=== PATIENT | male | born 1985 | race Caucasian/White ===

== ENCOUNTER 2018-02-16 18:54 | Emergency (ER) | payer OTHER ==
[2018-02-16] MEDS ORDERED: IPRATROPIUM/ALBUTEROL 3 ML DEYVIAL ONE (19:12)
[2018-02-16] MEDS ORDERED: IPRATROPIUM/ALBUTEROL 3 ML DEYVIAL IH ONE ×3 (19:14→20:18)
--- NOTE | 2018-02-16 19:15 | EDPHY ---
H & P Stated Complaint: sob low o2 sat 1 mos hx pnuemonia strep Time Seen by Provider: 02/16/18 19:12 - Personal History Current Tetanus/Diphtheria Vaccine: Yes Current Tetanus Diphtheria and Acellular Pertussis (TDAP): Yes - Medical/Surgical History Hx Asthma: No Hx Chronic Respiratory Disease: No Hx Diabetes: No Hx Cardiac Disease: No Hx Renal Disease: No Hx Cirrhosis: No Hx Alcoholism: No Hx HIV/AIDS: No Hx Splenectomy or Spleen Trauma: No - Social History Smoking Status: Current every day smoker Constitutional: Initial Vital Signs Temperature (C) 37.2 C 02/16/18 19:07 Heart Rate 109 H 02/16/18 19:07 Respiratory Rate 20 02/16/18 19:07 Blood Pressure 167/133 H 02/16/18 19:07 O2 Sat (%) 86 L 02/16/18 19:07 O2 Delivery Mode Room Air O2 (L/minute) 2 Allergies/Adverse Reactions: No Known Allergies Allergy (Unverified 02/16/18 19:06) Home Medications: Medication Instructions Recorded Ghislaine Allergy 02/16/18 Azithromycin [Zithromax] 250 mg PO DAILY #6 tab 02/16/18 predniSONE 40 mg PO DAILY #10 tab 02/16/18 Medical Decision Making - Diagnostics Imaging Results: Imaging Impressions Chest X-Ray 02/16/18 19:19 Impression: 1. Airways disease. 2. There are vague noncalcified nodular densities in each upper lung. These could potentially be secondary to mucous plugging with or without underlying bronchiectasis. Is there a history of cystic fibrosis? Results discussed with Dr. Garsia. Imaging: Discussed imaging studies w/ call center analyst Radiologist, I viewed and interpreted images myself ED Course/Re-evaluation: CHIEF COMPLAINT: Shortness of breath HISTORY OF PRESENT ILLNESS: The patient is a 33 y/o male with a history of asthma and hypertension complaining of worsening shortness of breath, onset two weeks ago. Around two months ago he was diagnosed with pneumonia and successfully treated with antibiotics. Around two weeks ago he developed a head cold associated with post- nasal drip. The head cold progressed and he developed a cough and shortness of breath. Today he noticed that the shortness of breath was worse and decided to present to the emergency department. He denies fevers or chills. Denies chest pain, abdominal pain, urinary or bowel complaints, numbness, paresthesias, headache. REVIEW OF SYSTEMS: A 10 point review of systems was performed and is negative with the exception of the elements mentioned in the history of present illness. PHYSICAL EXAM: HR, BP, O2 Sat, RR. Temp noted General Appearance: Alert, well hydrated, appropriate, and non-toxic appearing. Head: Atraumatic without scalp tenderness or obvious injury Eyes: Pupils equal, round, reactive to light and accommodation, EOMI, no trauma , no injection. Ears: Clear bilaterally, no perforation, normal landmarks Nose: Atraumatic, no rhinorrhea, clear. Throat: There is no erythema or exudates, no lesions, normal tonsils, mucus membranes moist. Neck: Supple, 2+ carotid upstroke, nontender, no lymphadenopathy. Respiratory: Bilateral increased end-expiratory phase, end expiratory wheezes, coarse rhonchi throughout. No retractions, no distress, and no accessory muscle use. Cardiovascular: Regular rate and rhythm, no murmurs, rubs, or gallops. Bilateral carotid, radial, dorsalis pedis, and posterior tibial pulses intact. Good capillary refill all extremities. Gastrointestinal: Abdomen is soft, nontender, non-distended, no masses, no rebound, no guarding, no peritoneal signs. Musculoskeletal: Normal active ROM of all extremities, atraumatic. Neurological: Alert, appropriate, and interactive. The patient has normal DTRs and non-focal cranial nerves, motor, sensory, and cerebellar exam. Skin: No rashes, good turgor, no nodules on palpation. 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 MEDICAL DECISION MAKING: The patient is a 33 y/o male with a history of asthma and hypertension presenting with worsening shortness of breath and a cough, onset two weeks ago. On exam he has bilateral increased end-expiratory phase, end expiratory wheezes , and coarse rhonchi throughout. His O2Sats are currently 89%. Chest x-ray ordered; two DuoNebs, 60mg PO Prednisone, and 500mg PO Azithromycin administered. 2014: Reassessed patient, he is feeling better after medications; additional DuoNeb administered. Chest x-ray still pending at this time. 2033: I spoke with Dr. Vivar, radiologist, regarding this patient's chest x-ray. 2034: Reassessed patient and discussed chest x-ray findings. I have offered him an admission, which he has declined. He states that he will monitor his O2Sats as he is a LEAD IN[employer]. He also has an appointment with his PCP to address his hypertension and asthma. I have prescribed him Zithromax, Prednisone, and a Proventil inhaler. Return precautions provided; patient is comfortable with this plan. - Data Points Medications Given: Discontinued Medications Albuterol Sulfate (Proventil Inh Prepack) 1 mdi TAKEHOME EDNOW ONE Stop: 02/16/18 20:41 Last Admin: 02/16/18 20:53 Dose: 1 mdi Albuterol/Ipratropium (Duoneb) 3 ml IH EDNOW ONE Stop: 02/16/18 19:15 Last Admin: 02/16/18 19:16 Dose: 3 ml Albuterol/Ipratropium (Duoneb) 3 ml IH EDNOW ONE Stop: 02/16/18 19:19 Last Admin: 02/16/18 19:19 Dose: 3 ml Albuterol/Ipratropium (Duoneb) 3 ml IH EDNOW ONE Stop: 02/16/18 20:19 Last Admin: 02/16/18 20:20 Dose: 3 ml Azithromycin (Zithromax) 500 mg PO EDNOW ONE PRN Reason: Protocol Stop: 02/16/18 19:19 Last Admin: 02/16/18 19:27 Dose: 500 mg Prednisone (Prednisone) 60 mg PO EDNOW ONE Stop: 02/16/18 19:19 Last Admin: 02/16/18 19:27 Dose: 60 mg Departure - Departure Disposition: Home, Routine, Self-Care Clinical Impression: Hypoxemia Acute bronchitis Qualifiers: Bronchitis organism: other organism Qualified Code(s): J20.8 - Acute bronchitis due to other specified organisms Reactive airway disease Qualifiers: Asthma severity: unspecified severity Asthma persistence: unspecified Asthma complication type: uncomplicated Qualified Code(s): J45.909 - Unspecified asthma , uncomplicated Dyspnea Qualifiers: Dyspnea type: shortness of breath Qualified Code(s): R06.02 - Shortness of breath Condition: Good Instructions: Acute Bronchitis (ED), Reactive Airways Disease (ED), Dyspnea (ED ), Hypoxemia (DC) Additional Instructions: 1. Take the Zithromax and Prednisone as prescribed. 2. Use the Proventil inhaler as prescribed. 3. Follow-up with your primary doctor within 72 hours. 4. Return to the Emergency Department for fever, chest pain, shortness of breath , increasing pain or other worsening of condition. Referrals: Cecilio Jean Baptiste MD [[facility] Primary Care Provider] - As per Instructions Prescriptions: Azithromycin [Zithromax] 250 mg PO DAILY #6 tab predniSONE 40 mg PO DAILY #10 tab Report Scribed for: Miles Garsia Report Scribed by: Naila Biggs Date of Report: 02/16/18 Time of Report: 19:37
[2018-02-16] MEDS ORDERED: predniSONE 20 MG TAB PO ONE (19:18)
[2018-02-16] MEDS ORDERED: AZITHROMYCIN 250 MG TAB PO ONE (19:18)
[2018-02-16] MEDS ORDERED: ALBUTEROL INH PREPACK MDI TAKEHOME ONE (20:40)
[2018-02-16 23:09] VITALS: BP 177/88
== END 2018-02-16 20:55 | disposition home or self-care (01) ==
DX: J20.9 Acute bronchitis, unspecified (principal); J45.909 Unspecified asthma, uncomplicated; R09.02 Hypoxemia
CPT/HCPCS: J7512

== ENCOUNTER → 2018-03-26 | Outpatient (CLI) | payer OTHER | LOC: BMCIMAGING 10:14 | PROVIDERS: ATTEND Family Medicine | DX: R05 Cough (principal); Z87.01 Personal history of pneumonia (recurrent) ==

== ENCOUNTER → 2018-04-24 | Outpatient (CLI) | payer OTHER | LOC: BMCIMAGING 13:53 | PROVIDERS: ATTEND Family Medicine | DX: R91.8 Other nonspecific abnormal finding of lung field (principal); R05 Cough; R07.9 Chest pain, unspecified; R09.89 Other specified symptoms and signs involving the circulatory and respiratory systems; M41.85 Other forms of scoliosis, thoracolumbar region ==

== ENCOUNTER → 2018-05-07 | Outpatient (CLI) | payer OTHER ==
[~2018-05-07] MED LIST: IOPAMIDOL (ISOVUE-300) 100 ML BTL ONE
== END ==
LOC: FIMAGING 09:32
PROVIDERS: ATTEND Family Medicine
DX: Z09 Encounter for follow-up examination after completed treatment for conditions other than malignant neoplasm (principal)
CPT/HCPCS: Q9967